=== PATIENT | female | born 1945 | race Caucasian/White ===

== ENCOUNTER → 2016-10-21 | Outpatient (CLI) | payer BC ==
[~2016-10-21] MED LIST: ALBU1AER9 INH; ALPR0.253 PO; ASCO10003 PO; ASPI81TA28 PO; ATOR-24 PO; CALCTAB5 PO; CHOL400T PO; CLOP1TAB15 PO; CYAN10005 PO; HYDR-5688 PO; METO1TAB66 PO; MULTTAB58 PO; NITR0.4S UT; OMEGCAP2 PO; PRED1SUS3 OPL; PRLSR20 PO; TRMO2580 TOP
== END | disposition home or self-care (01) ==
LOC: C.LABSPEC 19:00
PROVIDERS: ATTEND Internal Medicine
DX: R35.0 Frequency of micturition (principal)

== ENCOUNTER → 2016-12-23 | Outpatient (CLI) | payer BC ==
[~2016-12-23] MED LIST changes: +METO-452 PO; -METO1TAB66 PO
[2016-12-23 17:54] LABS: URINE APPEARANCE CLOUDY (CLEAR); URINE BILIRUBIN NEG (NEG); URINE COLOR YELLOW; URINE NITRITE NEG (NEG); URINE PH 5.5 (4.5-7.5); URINE SPECIFIC GRAVITY 1.005 (1.000-1.030); UROBILINOGEN NEG (NEG)
[2016-12-23 18:22] LABS: MANUAL MICROSCOPIC REQUIRED? NO; REVIEW REQ? NO
== END | disposition home or self-care (01) ==
LOC: C.LABBFT 15:53
PROVIDERS: ATTEND Physician Assistant Medical
DX: R39.9 Unspecified symptoms and signs involving the genitourinary system (principal)

== ENCOUNTER → 2017-02-17 | Outpatient (CLI) | payer BC | END | disposition home or self-care (01) | LOC: C.LABSPEC 17:28 | PROVIDERS: ATTEND Physician Assistant Medical | DX: R39.9 Unspecified symptoms and signs involving the genitourinary system (principal) ==

== ENCOUNTER → 2017-03-11 | Outpatient (CLI) | payer BC ==
[~2017-03-11] MED LIST changes: -METO-452 PO; +METO1TAB66 PO
[2017-03-11 12:32] LABS: BASO % 0.6 %; BASO ABS # 0.04 K/uL (0-0.2); COMPLETE YES; EOS % 5.1 %; IG% 0.1 %; LYMPH % 21.4 %; LYMPH ABS # 1.52 K/uL (1.2-3.4); MEAN CELL VOLUME 89.6 fL (80-100); MEAN CORPUSCULAR HEMOGLOBIN 30.2 pg (25-34); MEAN CORPUSCULAR HGB CONC 33.7 g/dl (32-36); MEAN PLATELET VOLUME 9.6 fL (7.4-10.4); MONO % 12.7 %; NEUT % 60.1 %; PLATELET COUNT 207 K/uL (130-400); WHITE BLOOD COUNT 7.11 K/uL (4.8-10.8)
[2017-03-11 17:07] LABS: ALT/SGPT 33 U/L (12-78); AST/SGOT 22 U/L (15-37); BLOOD UREA NITROGEN 14 mg/dl (7-18); BUN/CREATININE RATIO 14.6 (10-20); CALCIUM 9.1 mg/dl (8.5-10.1); CARBON DIOXIDE 29 mmol/L (21-32); CHLORIDE 107 mmol/L (98-107); CHOLESTEROL 126 mg/dl (0-200); CREATININE 0.97 mg/dl (0.60-1.20); GLUCOSE 91 mg/dl (70-99); POTASSIUM 4.6 mmol/L (3.5-5.1); SODIUM 140 mmol/L (136-145); TRIGLYCERIDES 86 mg/dl (0-150); VERY LOW DENSITY LIPOPROT CALC 17 mg/dl
[2017-03-11 17:10] LABS: ALB/GLOB RATIO 1.2 (0.9-2); ALKALINE PHOSPHATASE 91 U/L (45-117); CHOLESTEROL/HDL RATIO 2.4; HDL CHOLESTEROL 52 mg/dl; LDL CHOLESTEROL CALCULATED 57 mg/dl
== END | disposition home or self-care (01) ==
LOC: C.LABBFT 11:13
PROVIDERS: ATTEND Internal Medicine Cardiovascular Disease
DX: I25.10 Atherosclerotic heart disease of native coronary artery without angina pectoris (principal); E78.00 Pure hypercholesterolemia, unspecified

== ENCOUNTER → 2017-05-27 | Outpatient (CLI) | payer BC ==
--- NOTE | 2017-05-27 16:09 | MAMMOGRAPHY REPORT ---
BILATERAL DIGITAL SCREENING MAMMOGRAM WITH CAD: 05/27/2017 CLINICAL HISTORY: Routine screening. Patient has no complaints. TECHNIQUE: Current study was also evaluated with a Computer Aided Detection (CAD) system. Bilateral CC and MLO views were obtained. COMPARISON: Comparison is made to exams dated: 07/08/2016 mammogram, 01/20/2015 mammogram, 06/29/2013 mammogram, 01/20/2010 mammogram - [facility], 12/31/2008, and 08/09/2007. BREAST COMPOSITION: There are scattered areas of fibroglandular density in both breasts. FINDINGS: No suspicious masses, calcifications, or areas of architectural distortion are noted in ei ther breast. There has been no significant interval change compared to prior exams. Scattered bilater al benign-appearing calcifications are not significantly changed. IMPRESSION: ACR BI-RADS CATEGORY 2: BENIGN There is no mammographic evidence of malignancy. A 1 year screening mammogram is recommended. The pa tient will receive written notification of the results. Approximately 10% of breast cancers are not detected with mammography. A negative mammographic report should not delay biopsy if a clinically suggestive mass is present. Marianela Stanford M.D. /:05/27/2017 13:59:10 [employer] Board Supervisor: Jyothi PFEIFFER(Morales)(M), [facility] letter sent: Normal 1/2 BI-RADS Code: ACR BI-RADS Category 2: Benign
== END | disposition home or self-care (01) ==
LOC: C.MAMM 13:26
PROVIDERS: ATTEND Internal Medicine
DX: Z12.31 Encounter for screening mammogram for malignant neoplasm of breast (principal)

== ENCOUNTER → 2018-01-12 | Outpatient (CLI) | payer BC ==
[~2018-01-12] MED LIST changes: +METO-452 PO; -METO1TAB66 PO
== END | disposition home or self-care (01) ==
LOC: C.LABSPEC 16:48
PROVIDERS: ATTEND Physician Assistant Medical
DX: R39.9 Unspecified symptoms and signs involving the genitourinary system (principal)

== ENCOUNTER 2018-04-11 15:38 | Emergency (ER) | payer BC ==
[~2018-04-11] VITALS: Ht 170.2 cm; Wt 75.3 kg
[2018-04-11 15:40] VITALS: TEMP 37.1; Ht 170.2 cm; Wt 75.3 kg
[2018-04-11 16:18] LABS: BASO % 0.7 %; BASO ABS # 0.05 K/uL (0-0.2); EOS % 6.2 %; EOS ABS # 0.42 K/uL (0-0.5); HEMATOCRIT 41.9 % (37-47); HEMOGLOBIN 14.3 g/dL (12.0-16.0); IG# 0.01 K/uL (0.00-0.02); LYMPH % 26.4 %; LYMPH ABS # 1.78 K/uL (1.2-3.4); MEAN CELL VOLUME 90.1 fL (80-100); MEAN CORPUSCULAR HEMOGLOBIN 30.8 pg (25-34); MEAN CORPUSCULAR HGB CONC 34.1 g/dl (32-36); MEAN PLATELET VOLUME 9.5 fL (7.4-10.4); MONO % 12.9 %; MONO ABS # 0.87 K/uL (0.11-0.59); NEUT % 53.7 %; NEUT ABS # 3.61 K/uL (1.4-6.5); PLATELET COUNT 200 K/uL (130-400); RED CELL DISTRIBUTION WIDTH CV 13.6 % (11.5-14.5); RED CELL DISTRIBUTION WIDTH SD 44.6 fL (36.4-46.3); WHITE BLOOD COUNT 6.74 K/uL (4.8-10.8)
[2018-04-11] MEDS ORDERED: ALBU18002 INH (16:23)
[2018-04-11] MEDS ORDERED: ALPR-412 PO (16:25)
[2018-04-11] MEDS ORDERED: CALC-393 PO (16:28)
--- NOTE | 2018-04-11 16:31 | DIAGNOSTIC IMAGING REPORT ---
CERVICAL SPINE CT CT DOSE: 409.06 mGycm HISTORY: Left-sided neck pain. TECHNIQUE: Multiaxial CT images of the cervical spine were performed and reformatted in the sagittal and coronal plane without the use of contrast. A dose lowering technique was utilized adhering to the principles of ALARA. COMPARISON: None. FINDINGS: No fractures. No subluxation. Prevertebral soft tissues and the C1-C2 interval are intact. No pneumothorax. Mild left-sided facet osteoarthritis. Mild disc space narrowing at C4-C5 and C6-C7. Small broad-based posterior disc osteophyte complex at C4-C5. This results in moderate to severe left-sided neural foraminal narrowing and mild right-sided neural foraminal narrowing. There is also moderate bilateral neural foraminal narrowing at C6-C7. IMPRESSION: 1. No fractures identified within the cervical spine. 2. Degenerative changes as described above. Electronically signed by: Russell Santana M.D. 04/11/2018 4:30 PM Dictated Date/Time: 04/11/2018 4:22 PM
[2018-04-11 16:39] LABS: BLOOD UREA NITROGEN 13 mg/dl (7-18); CALCIUM 8.9 mg/dl (8.5-10.1); CARBON DIOXIDE 26 mmol/L (21-32); GLUCOSE 105 mg/dl (70-99); POTASSIUM 4.1 mmol/L (3.5-5.1); SODIUM 139 mmol/L (136-145)
--- NOTE | 2018-04-11 16:50 | DIAGNOSTIC IMAGING REPORT ---
CHEST ONE VIEW PORTABLE HISTORY: 73 years-old Female Chest Pain acute atypical chest pain COMPARISON: Chest radiograph 04/09/2013 TECHNIQUE: Portable AP view of the chest FINDINGS: The patient is slightly rotated to the left. Cardiac silhouette is within normal limits. There is no pneumothorax, pleural effusion, focal airspace consolidation or overt pulmonary edema. The bones of the chest appear grossly intact. There are degenerative changes of the shoulders and spine. Mild convex left curvature about the midthoracic spine. IMPRESSION: No acute process. The above report was generated using voice recognition software. It may contain grammatical, syntax or spelling errors. Electronically signed by: Morris Vega M.D. 04/11/2018 4:49 PM Dictated Date/Time: 04/11/2018 4:47 PM
[2018-04-11] MEDS ORDERED: PRED10TA PO (17:06)
[2018-04-11 17:29] VITALS: BP 131/69; PULSE 62; O2SAT 96
--- NOTE | 2018-04-11 19:52 | EMERGENCY ROOM VISIT NOTE ---
History Report prepared by Woody: Nadege Hernandez Under the Supervision of: Dr. Isaiah Maria D.O. First contact with patient: 15:43 Chief Complaint: OTHER COMPLAINT Stated Complaint: PAIN AND DISCOMFORT IN LEFT SIDE OF HEAD History of Present Illness The patient is a 73 year old female who presents to the Emergency Room with complaints of intermittent neck and head pain that began yesterday. She states that the pain is in the back of her neck and the base of her head where she has a protruding vein. The patient reports that the pain radiates down her left arm. She reports that she has had a "shock down her left arm." She states that she tried putting ice on her head and neck. The patient states that the pain gets worse with palpation, turning head to the left, and looking behind her. She denies any chest pain, shortness of breath, weakness, or numbness. She states that she had a little diarrhea and nausea, but no vomiting. The patient also admits to plastering her ceiling earlier this week. She reports a history of an MT in 2002 and had 2 stents put in. Source of History: patient Onset: yesterday Position: head, neck Quality: other (pain ) Timing: intermittent Modifying Factors (Worsening): movement, other (palpation ) Associated Symptoms: + nausea, + diarrhea, No chest pain, No SOB, No vomiting, No weakness, No numbness Review of Systems See HPI for pertinent positives & negatives. A total of 10 systems reviewed and were otherwise negative. Past Medical & Surgical Medical Problems: (1) Acute duodenal ulcer (2) Acute urinary tract infection (3) Arthritis (4) Benign hypertension (5) Gastroesophageal reflux disease (6) Myocardial infarction (7) Non-Hodgkin's lymphoma (8) Len's granulomatosis Family History Patient reports no known family medical history. Social History Smoking Status: Never Smoker Alcohol Use: occasionally Drug Use: none Marital Status: Occupation Status: retired Current/Historical Medications Scheduled Alprazolam (Alprazolam), 0.25 MG PO QAM Ascorbic Acid (Vitamin C), 1,000 MG PO QAM Aspirin (Aspirin Ec), 81 MG PO QAM Atorvastatin (Lipitor), 40 MG PO QPM Calcium Carbonate (Calcium), 600 MG PO BID Cholecalciferol (Vitamin D), 400 MG PO QPM Clopidogrel (Plavix), 75 MG PO QAM Cyanocobalamin (Vitamin B-12), 1,000 MCG PO QAM Metoprolol Succinate (Toprol Xl), 50 MG PO BID Multiple Vitamin (Multivitamin), 1 TAB PO QAM Nitroglycerin (Nitrostat), 0.4 MG UT PRN [place]-3 Fatty Acids (Fish Oil), 1 CAP PO QPM Omeprazole (Prilosec), 20 MG PO QAM Prednisone Tab (Prednisone), 10 MG PO DAILY Scheduled PRN Albuterol Sulfate (Proair Respiclick), 2 PUFFS INH DAILY PRN for SOB/Wheezing Hydrocodone/Acetaminophen 5MG/325MG ([place] 5MG/325MG), 1 TABLET PO Triamcinolone Acetonide (Topic (Triamcinolone Acet 0.025%), 1 APPLN TOP BID PRN for UTI Allergies Coded Allergies: Ciprofloxacin (Verified Allergy, Severe, UNKNOWN, 04/11/18) Moxifloxacin (Verified Allergy, Severe, swelling, 04/11/18) Penicillins (Verified Allergy, Intermediate, HIVES, 04/11/18) Sertraline (Verified Allergy, Mild, SWELLING, 04/11/18) Physical Exam Vital Signs Date Time Temp Pulse Resp B/P (MAP) Pulse Ox O2 Delivery O2 Flow Rate FiO2 04/11/18 17:29 62 19 131/69 96 04/11/18 16:04 63 04/11/18 15:40 37.1 66 18 129/73 95 Room Air Physical Exam GENERAL: Sitting up in bed, alert, well appearing, well nourished, no distress, non-toxic EYE EXAM: normal conjunctiva. OROPHARYNX: no exudate, no erythema, lips, buccal mucosa, and tongue normal and mucous membranes are moist NECK: supple, no nuchal rigidity, no adenopathy. Reproducible tenderness tracking down from the OA down left paraspinal into left trapezius and left shoulder. LUNGS: Clear to auscultation. Normal chest wall mechanics HEART: no murmurs, S1 normal and S2 normal ABDOMEN: abdomen soft, non-tender, normo-active bowel sounds, no masses, no rebound or guarding. BACK: Back is symmetrical on inspection and there is no deformity, no midline tenderness, no CVA tenderness. SKIN: no rashes and no bruising UPPER EXTREMITIES: upper extremities are grossly normal. Flexion and extension of the shoulder, elbow and wrist. Grasp 5/5. Radial pulse 2/4. Gross sensations intact. LOWER EXTREMITIES: No pitting edema. NEURO EXAM: Normal sensorium, cranial nerves II-XII grossly intact, normal speech, no gross weakness of arms Medical Decision & Procedures ER Provider Diagnostic Interpretation: Radiology results as stated below per my review and the radiologist's interpretation: CHEST ONE VIEW PORTABLE HISTORY: 73 years-old Female Chest Pain acute atypical chest pain COMPARISON: Chest radiograph 04/09/2013 TECHNIQUE: Portable AP view of the chest FINDINGS: The patient is slightly rotated to the left. Cardiac silhouette is within normal limits. There is no pneumothorax, pleural effusion, focal airspace consolidation or overt pulmonary edema. The bones of the chest appear grossly intact. There are degenerative changes of the shoulders and spine. Mild convex left curvature about the midthoracic spine. IMPRESSION: No acute process. The above report was generated using voice recognition software. It may contain grammatical, syntax or spelling errors. Electronically signed by: Morris Vega M.D. 04/11/2018 4:49 PM Dictated Date/Time: 04/11/2018 4:[address] DOSE: 409.06 mGycm HISTORY: Left-sided neck pain. TECHNIQUE: Multiaxial CT images of the cervical spine were performed and reformatted in the sagittal and coronal plane without the use of contrast. A dose lowering technique was utilized adhering to the principles of ALARA. COMPARISON: None. FINDINGS: No fractures. No subluxation. Prevertebral soft tissues and the C1-C2 interval are intact. No pneumothorax. Mild left-sided facet osteoarthritis. Mild disc space narrowing at C4-C5 and C6-C7. Small broad-based posterior disc osteophyte complex at C4-C5. This results in moderate to severe left-sided neural foraminal narrowing and mild right-sided neural foraminal narrowing. There is also moderate bilateral neural foraminal narrowing at C6-C7. IMPRESSION: 1. No fractures identified within the cervical spine. 2. Degenerative changes as described above. Electronically signed by: Russell Santana M.D. 04/11/2018 4:30 PM Dictated Date/Time: 04/11/2018 4:22 PM Laboratory Results 04/11/18 16:03 Red Blood Count 4.65, Mean Corpuscular Volume 90.1, Mean Corpuscular Hemoglobin 30.8, Mean Corpuscular Hemoglobin Concent 34.1, Mean Platelet Volume 9.5, Neutrophils (%) (Auto) 53.7, Lymphocytes (%) (Auto) 26.4, Monocytes (%) (Auto) 12.9, Eosinophils (%) (Auto) 6.2, Basophils (%) (Auto) 0.7, Neutrophils # (Auto ) 3.61, Lymphocytes # (Auto) 1.78, Monocytes # (Auto) 0.87, Eosinophils # (Auto ) 0.42, Basophils # (Auto) 0.05 04/11/18 16:03 Test 04/11/18 16:03 White Blood Count 6.74 K/uL (4.8-10.8) Red Blood Count 4.65 M/uL (4.2-5.4) Hemoglobin 14.3 g/dL (12.0-16.0) Hematocrit 41.9 % (37-47) Mean Corpuscular Volume 90.1 fL (80-100) Mean Corpuscular Hemoglobin 30.8 pg (25-34) Mean Corpuscular Hemoglobin Concent 34.1 g/dl (32-36) Platelet Count 200 K/uL (130-400) Mean Platelet Volume 9.5 fL (7.4-10.4) Neutrophils (%) (Auto) 53.7 % Lymphocytes (%) (Auto) 26.4 % Monocytes (%) (Auto) 12.9 % Eosinophils (%) (Auto) 6.2 % Basophils (%) (Auto) 0.7 % Neutrophils # (Auto) 3.61 K/uL (1.4-6.5) Lymphocytes # (Auto) 1.78 K/uL (1.2-3.4) Monocytes # (Auto) 0.87 K/uL (0.11-0.59) Eosinophils # (Auto) 0.42 K/uL (0-0.5) Basophils # (Auto) 0.05 K/uL (0-0.2) RDW Standard Deviation 44.6 fL (36.4-46.3) RDW Coefficient of Variation 13.6 % (11.5-14.5) Immature Granulocyte % (Auto) 0.1 % Immature Granulocyte # (Auto) 0.01 K/uL (0.00-0.02) Anion Gap 7.0 mmol/L (3-11) Est Creatinine Clear Calc Drug Dose 59.8 ml/min Estimated GFR () 74.0 Estimated GFR (Non- 63.9 BUN/Creatinine Ratio 14.4 (10-20) Calcium Level 8.9 mg/dl (8.5-10.1) Troponin I < 0.015 ng/ml (0-0.045) Laboratory results per my review. Medications Administered Medications (Trade) Dose Ordered Sig/Ramon Route Start Time Stop Time Status Last Admin Dose Admin Prednisone (PredniSONE TAB) 10 mg NOW ONCE PO 04/11/18 17:15 04/11/18 17:16 DC 04/11/18 17:28 10 MG ECG Per My Interpretation Indication: weakness Rate (beats per minute): 59 Rhythm: sinus bradycardia Findings: other (normal axis, no PVCs) ED Course ED COURSE: Vital signs were reviewed and were normal. The patients medical record was reviewed The above diagnostic studies were performed and reviewed. ED treatments and interventions as stated above. 1545: The patient was evaluated in room A11B. A complete history and physical examination was performed. 1715: Ordered Prednisone 10 mg PO. 1740: Upon reevaluation, the patient is feeling better. I discussed the findings and the treatment plan with the patient. She verbalizes agreement and understanding. She was discharged home. Medical Decision Differential diagnosis: Etiologies such as fracture, dislocation, neurovascular compromise, compartment syndrome, soft tissue injury, as well as others were entertained. Patient is a 73-year-old female who presents the ER with pain radiating down the back of her neck into her left arm. She notes it is worse with turning head to the left and on extension. She is neurologically and neurovascularly intact. She notes that she was placed during the ceiling just prior to this starting. CBC along with BMP was unremarkable. Troponin was negative. CT of the cervical spine shows no acute fractures. Chest x-ray was unremarkable. EKG was unremarkable. Symptoms have been present for greater than 8 hours and this is clearly muscle skeletal and do not believe cardiac. Patient was updated at bedside. She was given a short dose of steroids. She is not diabetic. She is discharged follow-up with PCP as an outpatient. Discussed with Pt concerning signs and symptoms to watch out for. Pt was instructed to follow up with their PCP and discussed with the patient their option to return to the ED at anytime for persistent or worsening symptoms. The appropriate anticipatory guidance and out-patient management, including indications for return to the emergency department, were explained at length to the patient and understood. Medication Reconcilliation Current Medication List: was personally reviewed by me Blood Pressure Screening Patient's blood pressure: Normal blood pressure Impression Primary Impression: Cervical radiculopathy Scribe Attestation The scribe's documentation has been prepared under my direction and personally reviewed by me in its entirety. I confirm that the note above accurately reflects all work, treatment, procedures, and medical decision making performed by me. Departure Information Dispostion Home / Self-Care Prescriptions Prednisone Tab (PREDNISONE) 10 Mg Tab 10 MG PO DAILY for 3 Days, #3 TAB Prov: Isaiah Maria, DO 04/11/18 Referrals Sylvester Zuñiga M.D. (PCP) Forms HOME CARE DOCUMENTATION FORM, IMPORTANT VISIT INFORMATION, WORK / SCHOOL INSTRUCTIONS Patient Instructions My [facility], Radiculopathy Cervical Additional Instructions Please follow up with your primary care doctor with in the next 24 hours. Any worsening of your symptoms, please return to the ED immediately. This includes any fevers greater than 100.4, worsening pain, chest pain, shortness breath, persistent nausea, vomiting, unable to eat or drink, or any other concerning signs or symptoms from your standpoint. Please take Tylenol or Motrin as needed for pain.
== END 2018-04-11 17:30 | disposition home or self-care (01) ==
LOC: C.EDB 15:39 → C.EDA 17:30
DX: M54.12 Radiculopathy, cervical region (principal); I25.2 Old myocardial infarction; Z87.440 Personal history of urinary (tract) infections; M19.90 Unspecified osteoarthritis, unspecified site; I10 Essential (primary) hypertension; K21.9 Gastro-esophageal reflux disease without esophagitis; Z85.72 Personal history of non-Hodgkin lymphomas; M31.30 Wegener's granulomatosis without renal involvement; Z79.899 Other long term (current) drug therapy; Z79.82 Long term (current) use of aspirin; Z79.01 Long term (current) use of anticoagulants; Z88.1 Allergy status to other antibiotic agents; Z88.0 Allergy status to penicillin; Z88.8 Allergy status to other drugs, medicaments and biological substances